=== PATIENT | male | born 1985 | race Caucasian/White ===

== ENCOUNTER 2021-01-21 13:27 | Emergency (ER) | payer BC, SELFPAY ==
[~2021-01-21] VITALS: Ht 172.7 cm; Wt 99.8 kg
[2021-01-21 14:48] LABS: BASOPHILS % (AUTO) 0.7 % (0.0-2.0); EOSINOPHILS # (AUTO) 0.1 K/uL (0.0-0.4); EOSINOPHILS % (AUTO) 1.7 % (0.0-4.0); HEMATOCRIT 42.8 % (36-54); LYMPHOCYTES # (AUTO) 2.5 K/uL (1.0-5.5); LYMPHOCYTES % (AUTO) 37.7 % (20.5-51.5); MEAN CORPUSCULAR HEMOGLOBIN 31 pg (27-31); MEAN CORPUSCULAR HGB CONC 35 % (32-36); MEAN CORPUSCULAR VOLUME 87 fL (79.0-98.0); MONOCYTES # (AUTO) 0.5 K/uL (0.0-1.0); MONOCYTES % (AUTO) 7.1 % (1.7-9.3); NEUTROPHILS # (AUTO) 3.5 K/uL (1.8-7.7); NEUTROPHILS % (AUTO) 52.8 % (40.0-70.0); PLATELET COUNT (AUTO) 214 K/uL (130-430); RED BLOOD CELL COUNT(AUTO) 4.91 MIL/uL (4.2-6.2); RED CELL DISTRIBUTION WIDTH 13.2 % (9.0-15.0); WHITE BLOOD COUNT (AUTO) 6.6 K/uL (4.8-10.8)
[2021-01-21 15:40] LABS: ANION GAP 15 (5-15); CALCIUM 8.9 mg/dL (8.4-11.0); CHLORIDE 100 mmol/L (98-107); GLUCOSE 383 mg/dL (70-99); POTASSIUM 3.9 mmol/L (3.5-5.1); SODIUM SERUM 136 mmol/L (136-145); UREA NITROGEN, BLOOD 25 mg/dL (8-21)
[2021-01-21 15:41] LABS: CREATININE 1.03 mg/dL (0.55-1.30); GFR AFRICAN AMERICAN 105 mL/min (>90); TOTAL BILIRUBIN 0.4 mg/dL (0.0-1.0)
[2021-01-21 15:42] LABS: ALANINE AMINOTRANSFERASE 103 U/L (12-78); ALBUMIN 3.9 g/dL (3.4-4.8); AMYLASE 34 U/L (0-100); LIPASE 159 U/L (73-393)
[2021-01-21 15:50] LABS: ACETONE, SERUM TRACE (NEGATIVE)
[2021-01-21 15:59] LABS: ASPARTATE AMINOTRANSFERASE 55 U/L (10-37)
[2021-01-21] MEDS ORDERED: GLU500 PO (16:11)
[2021-01-21] MEDS ORDERED: INSULIN REGULAR, HUMAN 10 UNITS/0.1 ML INJ ONE (16:18)
[2021-01-21] MEDS: INSULIN REGULAR, HUMAN 10 UNITS/0.1 ML INJ IVP ONE (16:19)
[2021-01-21 16:26] VITALS: BP_SYST 126
== END 2021-01-21 16:27 | disposition left against medical advice (07) ==
LOC: SED 13:27
DX: E11.65 Type 2 diabetes mellitus with hyperglycemia (principal)
CPT/HCPCS: 36415; 80053; 82009; 82150; 82962; 83036; 83690; 85025; 96372; 99283; J1815